=== PATIENT | female | born 1955 | race Caucasian/White ===

== ENCOUNTER 2016-03-29 07:22 | Day surgery (SDC) | payer OTHER ==
[2016-02-07 13:06] VITALS: BMI 15.0
[2016-03-29] MEDS ORDERED: LIDOCAINE 1% 20 ML MDV ID ONE (07:40)
[2016-03-29] MEDS ORDERED: DUONEB NEB STA (07:56)
[2016-03-29] MEDS ORDERED: DIPRIVAN 20 ML VIAL IVP ONE (09:00)
[2016-03-29] MEDS ORDERED: DECADRON 4 MG/ML SDV ONE (09:00)
[2016-03-29] MEDS ORDERED: ZOFRAN 4 MG/2 ML ONE (09:00)
[2016-03-29] MEDS ORDERED: SUBLIMAZE ONE (09:00)
[2016-03-29] MEDS ORDERED: VERSED ONE (09:00)
[2016-03-29] MEDS ORDERED: MOTRIN SUSP UD PO ONE (10:10)
[2016-03-29 11:29] VITALS: BP 97/62; TEMP 98.4
--- NOTE | 2016-03-30 08:33 | OP ---
PREOPERATIVE DIAGNOSIS: Chronic laryngitis POSTOPERATIVE DIAGNOSIS: Same OPERATION: Direct Laryngoscopy and biopsy of both cords. PROCEDURE: The patient was taken to surgery, placed on the table and general anesthesia was administered. She is hyperventilated and then using an anterior endoscope the vocal cords were inspected and secured with the matt. Using 400 mm lens on a Zeiss microscope both right and left vocal cord was striped using microsurgical technique. Bleeding was minimal. Clinically the vocal cords appeared to be yumi inflammation but no gross malignancy. Bleeding was minimal. The patient was awakened and taken back to recovery room in satisfactory condition. STONEY
== END 2016-03-29 11:00 | disposition home or self-care (01) ==
LOC: SURG 07:22
PROVIDERS: ATTEND Otolaryngology
DX: J37.0 Chronic laryngitis (principal); D10.4 Benign neoplasm of tonsil; F17.210 Nicotine dependence, cigarettes, uncomplicated
CPT/HCPCS: 94640

== ENCOUNTER 2016-05-01 13:05 | Outpatient (CLI) ==
[2016-02-07 13:06] VITALS: BMI 15.0
--- NOTE | 2016-05-01 13:36 | DI ---
Two radiographic images of the chest. Comparison: 02/07/2016. Reason for study: Nonspecific findings. FINDINGS: The lungs are hyperexpanded. Diffuse lucency is consistent with emphysema or chronic obs tructive pulmonary disease. Scarring /consolidation is seen in the right upper lobe. There is clifton ening of the hemidiaphragms. Impression: 1. Opacity in the right upper lobe may represent scarring or pneumonia. 2. Chronic obstructive pulmonary disease
== END 2016-05-01 13:06 | disposition home or self-care (01) ==
LOC: RAD 13:05
PROVIDERS: ATTEND Nurse Practitioner Family
DX: R91.8 Other nonspecific abnormal finding of lung field (principal)

== ENCOUNTER 2017-08-15 16:16 | Outpatient (CLI) | payer OTHER ==
[2016-02-07 13:06] VITALS: BMI 15.0
== END 2017-08-15 16:17 | disposition home or self-care (01) ==
LOC: FCC-LAB 16:16
PROVIDERS: ATTEND Family Medicine
DX: J44.9 Chronic obstructive pulmonary disease, unspecified (principal); R63.0 Anorexia; R06.02 Shortness of breath; F41.9 Anxiety disorder, unspecified; R94.6 Abnormal results of thyroid function studies; Z87.01 Personal history of pneumonia (recurrent)
CPT/HCPCS: 36415; 80053; 84439; 84443; 85025

== ENCOUNTER 2017-11-30 07:20 | Day surgery (SDC) ==
[2016-02-07 13:06] VITALS: BMI 15.0
[2017-11-30] MEDS ORDERED: LIDOCAINE 1% 20 ML MDV ID STA ×2 (07:41→09:20)
[2017-11-30] MEDS ORDERED: NEOSPORIN OINT 0.9 GM PACKET TP STA (07:55)
[2017-11-30] MEDS ORDERED: NEO-SYNEPHRINE OT PRN (07:55)
[2017-11-30 16:05] VITALS: BP 112/56; TEMP 98.6
--- NOTE | 2017-12-04 13:29 | OP ---
PREOPERATIVE DIAGNOSIS: LESION OF LEFT PINNA POSTOPERATIVE DIAGNOSIS: LESION OF LEFT PINNA OPERATION: EXCISION OF LESION OF LEFT PINNA PROCEDURE: The patient was taken to surgery, placed on the table and general anesthesia was administered. 1% Xylocaine Epinephrine was injected in the external ear canal and tragus and pinna and then using an elliptical incision approximately 1x1.5cm. Incision was taken into the cartilage where the lesion was removed. Bleeding was controlled with cauterization. The skin was brought together using interrupted 4-0 nylon suture. The patient was taken back to the recovery room in satisfactory condition. STONEY
== END 2017-11-30 10:25 | disposition home or self-care (01) ==
LOC: SURG 07:20
PROVIDERS: ATTEND Otolaryngology
DX: L57.0 Actinic keratosis (principal)

== ENCOUNTER 2017-12-24 12:40 | Outpatient (CLI) | payer OTHER ==
[2016-02-07 13:06] VITALS: BMI 15.0
== END 2017-12-24 12:41 | disposition home or self-care (01) ==
LOC: FCC-LAB 12:40
PROVIDERS: ATTEND Family Medicine
DX: R53.81 Other malaise (principal); R63.4 Abnormal weight loss; M13.0 Polyarthritis, unspecified
CPT/HCPCS: 36415; 80053; 84443; 85025; 85651; 86038; 86430

== ENCOUNTER 2018-01-02 10:11 | Outpatient (CLI) | payer OTHER ==
[2016-02-07 13:06] VITALS: BMI 15.0
--- NOTE | 2018-01-02 19:20 | MAMMO ---
EXAM: Digital diagnostic mammogram with tomosynthesis and left breast ultrasound HISTORY: Left breast lump COMPARISON: 08/31/2009 FINDINGS: Mammogram: Digital diagnostic mammogram was performed. CC and MLO views right and left breast and s pot compression CC and MLO views left breast. Tomosynthesis was performed. Computer aided detection utilized. In the left breast, there is a 0.8 cm spiculated mass with a few associated heterogeneous and punctate calcifications in the left lateral inferior breast approximate 5 cm from the nipple. N o suspicious mass, calcification, asymmetry, or distortion is seen in the right breast. Ultrasound: Ultrasound left breast was performed. There is no definite sonographic correlate to the mass on mammogram. At the 6 o'clock position 5 cm from the nipple, there is a probable lymph node w ith normal fatty hilum measuring 0.4 x 0.5 x 0.5 cm. At the 1 o'clock position 5 cm nipple, there is a hypoechoic region that measures 0.8 x .0 9 x 0.5 cm that was evaluated in the time examination an d appears to represent normal fibroglandular tissue. IMPRESSION: 1. Spiculated mass in the left breast without definite sonographic correlate. This finding is suspi cious. Biopsy is recommended. A second look ultrasound could be considered prior to biopsy. 2. Probable left breast lymph node (6 o'clock 5 cm from the nipple) is probably benign. Probable nor mal fibroglandular tissue (1 o'clock 5 cm from the nipple) is probably benign. Sonographic follow-up of these findings is recommended in 6 months to ensure stability. BIRADS category 4, Suspicious
== END 2018-01-02 10:12 | disposition home or self-care (01) ==
LOC: RAD 10:11
PROVIDERS: ATTEND Family Medicine
DX: N63.21 Unspecified lump in the left breast, upper outer quadrant (principal)

== ENCOUNTER 2018-01-07 12:57 | Outpatient (CLI) ==
[2016-02-07 13:06] VITALS: BMI 15.0
--- NOTE | 2018-01-07 15:51 | DI ---
EXAM: PA and lateral views of the chest HISTORY: Emphysema COMPARISON: Chest Xray from 05/01/2016 FINDINGS: There is very severe and advanced bullous emphysema in the upper lung leggett bilaterally. There is hyperexpansion of the lung leggett as well. There is some scarring in the right upper lung field laterally. There is air space opacification seen in the left upper lung along the pleural ramona face which was not present previously. Cardiac and mediastinal silhouettes show no acute abnormality . No acute osseous or soft tissue abnormalities. IMPRESSION: 1. Pleural-based left upper lobe soft tissue density as described not present on the previous exam. Would recommend follow-up to document resolution and rule out progressive etiology for this appearan ce. 2. Residual scarring in the right upper lung field laterally. 3. Severe emphysema.
== END 2018-01-07 12:58 | disposition home or self-care (01) ==
LOC: FCC-LAB 12:57 → RAD 12:58
PROVIDERS: ATTEND Family Medicine
DX: J43.1 Panlobular emphysema (principal)

== ENCOUNTER 2018-06-14 15:02 | Emergency (ER) ==
[2018-06-14 15:11] VITALS: BP 100/68; TEMP 100.9; BMI 15.3
--- NOTE | 2018-06-14 16:27 | ED.PDOC ---
General ED Provider: Dr. JUD LEW Chief Complaint: Fever Stated Complaint: noticed increase in home o2 USE WOODY,pOSS topher,FREQUENCY., cHJILLS, Time Seen by Physician: 16:27 Mode of Arrival: Walk-In Information Source: Patient Exam Limitations: No limitations Primary Care Provider: PAUL PATTERSON Nursing and Triage Documentation Reviewed and Agree: Yes Does patient meet sepsis criteria?: Yes (Temp is almost 101.100,9/ with HR 100.Recheck) If yes, has appropriate treatment been initiated?: Yes System Inflammatory Response Syndrome: Not Applicable Sepsis Protocol: For patient's 13 years and over: Temp is 96.8 and below OR 101 and greater Pulse >90 BPM Resp >20/minute Acutely Altered Mental Status Are patient's symptoms suggestive of a new infection, such as: -Pneumonia -Skin, Soft Tissue -Endocarditis -UTI -Bone, Joint Infection -Implantable Device -Acute Abdominal Infection -Wound Infection -Meningitis -Blood Stream Catheter Infection -Unknown Respiratory Complaint Exam - Respiratory Complaint/Exam Onset/Duration: FEW DAYS Symptoms Are: Still present Timing: Intermittent Initial Severity: Moderate Location: Chest Character: Reports: Non-productive cough Aggravating: Reports: Passive smoke exposure, Weather Alleviating: Reports: None Associated Signs and Symptoms: Reports: Dyspnea, Chills, Sore throat Related History: Reports: Similar episode History of Healthcare-Acquired Pneumonia: No Related Surgical History: Reports: None Pulmonary Embolism Risk Factors: None Cardiac Risk Factors: Reports: None Pseudomonas Risk Factors: Reports: None Tuberculosis Risk Factors: Reports: None Status Asthmaticus Risk Factors: Reports: None Home Oxygen Use: Yes Recent Stress Test: No Recent Echo/LV Function: No Current Antibiotic Use: Yes Current Asthma Medication Use: No Respiratory Distress: None Inadequate Respiratory Effort: No Dysphagia Present: No Stridor Present: No JVD Present: No Accessory Muscle Use: No Retractions: Not Present Diminished Breath Sounds: Yes Prolonged Respiration: Expiratory phase Sinus Tenderness: None Grunting Respirations: No Kussmaul Respirations: No Differential Diagnoses: Airway Obstruction, Asthma, COPD Exacerbation, Sinusitis , Aspiration Review of Systems - Review Of Systems Constitutional: Reports: Chills Eyes: Reports: No symptoms Ears, Nose, Mouth, Throat: Reports: No symptoms Respiratory: Reports: No symptoms Cardiac: Reports: No symptoms GI: Reports: No symptoms : Reports: No symptoms Musculoskeletal: Reports: No symptoms Skin: Reports: No symptoms Neurological: Reports: No symptoms Endocrine: Reports: No symptoms Hematologic/Lymphatic: Reports: No symptoms All Other Systems: Reviewed and Negative Past Medical History - Past Medical History Previously Healthy: Yes Endocrine: Reports: None Cardiovascular: Reports: None Respiratory: Reports: COPD Hematological: Reports: None Gastrointestinal: Reports: None Genitourinary: Reports: None Neuro/Psych: Reports: Anxiety, Depression Musculoskeletal: Reports: None Cancer: Reports: None Last Menstrual Period: HYSTERECTOMY Other Pertinent Past Medical History: GALLBLADDER, TONSIL, HYSTERECTOMY AT 32 Y/ O - Surgical History General Surgical History: Reports: Hysterectomy (HYSTERECTOMY AT 32 Y/O), Tubal ligation, Cholecystectomy - Family History Family History: Reports: Unknown - Social History Smoking Status: Current every day smoker, Light tobacco smoker Hx Substance Use: No Alcohol Screening: None - Immunizations Tetanus Shot up to Date: Yes Physical Exam - Physical Exam Appearance: Ill-appearing, Thin Ill-appearing: Mild Pain Distress: None Eyes: PANCHO ENT: Ears normal Neck: Supple Respiratory: Breath sounds diminished Cardiovascular: No rub, Tachycardia GI/: Soft Musculoskeletal: Normal strength Skin: Warm Neurological: Sensation intact Critical Care Note - Critical Care Note Total Time (mins): 0 Course - Course Hematology/Chemistry: 06/14/18 16:53 06/14/18 16:53 Orders, Labs, Meds: Lab Review 06/14/18 06/14/18 06/14/18 15:30 16:53 16:53 WBC 14.26 H RBC 3.98 L Hgb 12.1 Hct 38.1 MCV 95.7 MCH 30.4 MCHC 31.8 RDW Coeff of Colin 12.2 Plt Count 306 Immature Gran % (Auto) 0.4 Neut % (Auto) 81.0 Lymph % (Auto) 8.9 L [place] % (Auto) 8.3 Eos % (Auto) 1.0 Baso % (Auto) 0.4 Immature Gran # (Auto) 0.1 Neut # (Auto) 11.6 H Lymph # (Auto) 1.3 [place] # (Auto) 1.2 Eos # (Auto) 0.1 Baso # (Auto) 0.1 Sodium 142.0 Potassium 3.53 Chloride 102.5 Carbon Dioxide 31.9 H Anion Gap 11.13 BUN 13.5 Creatinine 0.52 L Estimated GFR (MDRD) 120.00 BUN/Creatinine Ratio 25.96 Glucose 118.3 H Lactic Acid Calcium 9.23 Total Bilirubin 0.48 AST 15.2 ALT 11.5 Alkaline Phosphatase 98.9 Total Protein 7.18 Albumin 3.66 Globulin 3.52 Albumin/Globulin Ratio 1.03 Urine Color Yellow Urine Clarity Cloudy Urine pH 5.5 Ur Specific Reader >=1.030 Urine Protein 1+ Urine Glucose (UA) Negative Urine Ketones Trace Urine Blood Negative Urine Nitrite Negative Urine Bilirubin Negative Urine Urobilinogen 0.2 Ur Leukocyte Esterase Negative Ur Squamous Epith Cells 50-100 06/14/18 17:26 WBC RBC Hgb Hct MCV MCH MCHC RDW Coeff of Colin Plt Count Immature Gran % (Auto) Neut % (Auto) Lymph % (Auto) [place] % (Auto) Eos % (Auto) Baso % (Auto) Immature Gran # (Auto) Neut # (Auto) Lymph # (Auto) [place] # (Auto) Eos # (Auto) Baso # (Auto) Sodium Potassium Chloride Carbon Dioxide Anion Gap BUN Creatinine Estimated GFR (MDRD) BUN/Creatinine Ratio Glucose Lactic Acid 1.28 Calcium Total Bilirubin AST ALT Alkaline Phosphatase Total Protein Albumin Globulin Albumin/Globulin Ratio Urine Color Urine Clarity Urine pH Ur Specific Reader Urine Protein Urine Glucose (UA) Urine Ketones Urine Blood Urine Nitrite Urine Bilirubin Urine Urobilinogen Ur Leukocyte Esterase Ur Squamous Epith Cells Orders Category Date Time Status NPO REMINDER: IMAGING ONCE CARE 06/14/18 17:13 Completed BLOOD CULTURE (ED ONLY) Stat LAB 06/14/18 17:25 Received CBC W/ AUTO DIFF Stat LAB 06/14/18 16:53 Completed COMPREHENSIVE METABOLIC PANEL Stat LAB 06/14/18 16:53 Completed LACTIC ACID Stat LAB 06/14/18 17:26 Completed UA [URINALYSIS C & S IF INDICATED] Stat LAB 06/14/18 15:30 Completed URINALYSIS C & S IF INDICATED Stat LAB 06/14/18 16:37 Uncollected Acetaminophen [Tylenol] MEDS 06/14/18 16:41 Discontinued 650 mg PO ONCE STA Ceftriaxone Sodium [Rocephin] MEDS 06/14/18 17:29 Discontinued 500 mg .ROUTE .STK-MED ONE Ceftriaxone Sodium [Rocephin] 500 mg MEDS 06/14/18 17:08 Discontinued 0.9 % Sodium Chloride [Sodium Chloride] 50 ml IV ONCE CHEST, 2 VIEWS PA & LAT Stat RADS 06/14/18 16:[address] CHEST W/O CONTRAST Stat RADS 06/14/18 17:10 Completed Medications Discontinued Medications Generic Name Dose Route Start Last Admin Trade Name Alcides PRN Reason Stop Dose Admin Acetaminophen 650 mg 06/14/18 16:41 06/14/18 16:53 Tylenol PO 06/14/18 16:42 650 mg ONCE STA Administration Ceftriaxone Sodium 500 mg/ 50 mls @ 75 mls/hr 06/14/18 17:08 06/14/18 18:00 Sodium Chloride IV 06/14/18 17:47 75 mls/hr ONCE STA Administration Vital Signs: Temp Pulse Resp BP Pulse Ox 06/14/18 15:05 100.9 F H 100 H 18 100/68 91 L Departure - Departure Time of Disposition: 18:21 Disposition: HOME SELF-CARE Discharge Problem: COPD mixed type Instructions: Emphysema (ED) Condition: Good Pt referred to PMD for follow-up: Yes IPMP verified?: Yes Allergies/Adverse Reactions: Allergies Antihistamines - Alkylamine Allergy (Severe, Verified 02/07/16 13:06) over drowsy pt notified to get medical alert necklace brompheniramine maleate [From Dimetapp (brompheniramine-PPA)] Allergy (Severe, Verified 02/07/16 13:06) over sedated latex Allergy (Severe, Verified 02/07/16 13:06) rash levofloxacin [From Levaquin] Allergy (Severe, Verified 02/07/16 13:06) abd pain morphine Allergy (Severe, Verified 02/07/16 13:06) lethargy phenylpropanolamine HCl [From Dimetapp (brompheniramine-PPA)] Allergy (Severe, Verified 02/07/16 13:06) over sedated Sulfa (Sulfonamide Antibiotics) Allergy (Severe, Verified 02/07/16 13:06) rash codeine Allergy (Verified 02/07/16 13:06) shellfish derived Allergy (Verified 02/07/16 13:06) Iodinated Contrast- Oral and IV Dye [Iodinated Contrast Media - IV Dye] Adverse Reaction (Verified 02/07/16 13:06) Latex, Natural Rubber Adverse Reaction (Verified 02/07/16 13:06) dye Allergy (Severe, Uncoded 07/19/15 22:09) abd pain Home Medications: Ambulatory Orders Albuterol Sulfate [Ventolin Hfa] 1 puff INH TID PRN 03/29/16 Disposition Discussed With: Patient, Family
[2018-06-14] MEDS ORDERED: TYLENOL PO STA (16:41)
--- NOTE | 2018-06-14 16:56 | DI ---
EXAM: Two view(s) chest. HISTORY: Shortness of breath. COMPARISON: 01/07/2018 TECHNIQUE: Two view(s) of the chest. FINDINGS: There are clips in the left lower chest. Lungs: There is hyperexpansion of the lungs with flattening of the diaphragms. Emphysematous changes ar e seen bilaterally. There are fibrotic changes in the upper lobes. In the medial left apex, there is a soft tissue d ensity measuring up to 4.0 x 3.3 cm. This is not seen on the prior study and may be related to fibro sis. There are no suspicious nodules. There is no pneumothorax. Cardiovascular: The heart size and pulmonary vasculature is normal.. The aorta is unremarkable. Leticia/Mediastinum: Normal. Osseous structures. Normal for age. IMPRESSION: 1. Hyperexpansion of chest consistent with chronic obstructive pulmonary disease. 2. No definite lobar consolidation or effusion. 3. New opacity in the medial left apex which may be due to consolidation or fibrosis. Mass lesion c annot be excluded. This is not seen on the previous study. Recommend CT to exclude underlying or de veloping mass lesion.
[2018-06-14] MEDS ORDERED: ROCEPHIN 500 MG in SODIUM CHLORIDE 50 ML IV STA (17:08)
[2018-06-14] MEDS ORDERED: ROCEPHIN ONE (17:29)
--- NOTE | 2018-06-14 18:08 | CT ---
Exam: CT of the chest without contrast History: Left lung mass Technique: [address] of the chest without contrast FINDINGS: Increase soft tissue density in the left lung apex compared with the most recent CT dated 07/22/2015. Progressive scarring and volume loss. Decreased right-sided consolidation with persiste nt scarring. Severe underlying emphysema. No pathologic lymph node enlargement or abundance of medi astinum. Minor atherosclerotic calcification of the aorta. There is a increasing diameter lymph nod e in the left axilla measuring 1.5 x 1.1 cm. Interval left breast surgery. No acute findings of the upper abdomen. Impression: 1. Increased soft tissue attenuation in the left apex favoring combination of atelectasis and consol idation over mass. Neoplasm is not excluded and tissue sampling versus short follow up after treatme nt recommended. 2. Right-sided scarring and previous consolidation site on 03/22/2016 3. Severe emphysema 4. Left axillary lymph node increased in diameter since 03/22/2016. There has been interval left br east surgery. Breast evaluation recommended.
== END 2018-06-14 19:02 | disposition home or self-care (01) ==
LOC: ED 15:02
DX: J44.9 Chronic obstructive pulmonary disease, unspecified (principal); R50.9 Fever, unspecified; R05 Cough; J02.9 Acute pharyngitis, unspecified; R35.0 Frequency of micturition; R06.00 Dyspnea, unspecified; F17.210 Nicotine dependence, cigarettes, uncomplicated; Z99.81 Dependence on supplemental oxygen
CPT/HCPCS: 36415; 80053; 81001; 83605; 85025; 87040; 96374; 99283

== ENCOUNTER 2018-09-16 10:52 | Outpatient (CLI) ==
--- NOTE | 2018-09-16 14:47 | CT ---
EXAM: CT chest without contrast HISTORY: Follow-up lung mass COMPARISON: 06/14/2018 TECHNIQUE: CT chest performed without intravenous contrast. Coronal and sagittal reformatted images obtained. FINDINGS: Thyroid and thoracic inlet appear normal. Heart normal in size. No pericardial effusion. Aorta normal in caliber. Evaluation for lymphadenopathy limited without contrast. No lymphadenopa thy identified in the chest. Postsurgical changes left breast. The patient status post cholecystect narendra. Interposition of bowel posterior to the right lobe liver. Interposition of a loop of bowel pos terior to the right lobe of liver. Patient status post cholecystectomy. Small debris in the trachea . Severe emphysema. Soft tissue opacity left lung apex, favoring a combination of atelectasis and consolidation over mass. This has improved from prior examination. Persistent scarring and chronic consolidation, unchanged. Stable ground-glass nodularity right lung image 44 measuring 1.0 cm IMPRESSION: 1. Soft tissue opacity left lung apex, favoring a combination of atelectasis and consolidation over mass. This has improved from prior examination.. This likely represents improved pneumonia. Neopla sm not excluded. Recommend CT chest follow-up in 3 months. 2. Right-sided scarring and chronic consolidation, unchanged. This can be assessed on follow-up. 3. Stable ground-glass nodularity right lung. This can be assessed on follow-up. 4. Severe emphysema. 5. Small debris in the trachea.
== END 2018-09-16 10:53 | disposition home or self-care (01) ==
LOC: RAD 10:52
PROVIDERS: ATTEND Nurse Practitioner Family
DX: R91.8 Other nonspecific abnormal finding of lung field (principal)